=== PATIENT | male | born 1970 | race Caucasian/White ===

== ENCOUNTER 2024-03-26 18:53 | Emergency (ER) | payer OTHER ==
[~2024-03-26] VITALS: Ht 175.3 cm; Wt 86.2 kg
[2024-03-26 19:00] VITALS: O2SAT 96
[2024-03-27] MEDS ORDERED: CEPH500C2 MT (01:23)
[2024-03-27] MEDS ORDERED: MUPI15CR11 TP (01:23)
[2024-03-27] MEDS ORDERED: NAPR-681 MT (01:23)
[2024-03-27] MEDS ORDERED: SULF1TAB48 MT (01:23)
[2024-03-27 02:15] VITALS: BP 174/88; PULSE 87; RESP 14; TEMP 98.2
== END 2024-03-27 02:20 | disposition home or self-care (01) ==
LOC: ER 18:53
DX: L03.211 Cellulitis of face (principal)
CPT/HCPCS: 70486; 70490; 99284